=== PATIENT | male | born 1980 | race Caucasian/White ===

== ENCOUNTER 2021-12-07 10:13 | Emergency (ER) | payer SELFPAY ==
[2021-12-07 10:15] VITALS: BP 125/68; PULSE 92; RESP 16; TEMP 36.8; O2SAT 97; BMI 21.7
[2021-12-07 10:19] VITALS: BP 127/71; PULSE 78; RESP 16; TEMP 37.1; O2SAT 94
--- NOTE | 2021-12-07 10:51 | CT_ITS ---
STUDY: CT ABDOMEN AND PELVIS WITHOUT CONTRAST REASON FOR EXAM: Male, 41 years old. Left flank pain. Fever. RADIATION DOSAGE (If Supplied By Facility): CTDIvol = ( 6.13 ) mGy, DLP = ( 297.05 ) mGycm TECHNIQUE: Transaxial images were obtained from the dome of the diaphragm to the symphysis pubis without oral contrast, and without intravenous contrast. Sagittal and coronal images were reconstructed. Individualized dose optimization techniques were used for this CT. COMPARISON: None. FINDINGS: There is a 4.1 cm x 3.5 cm masslike lesion in the posterior medial segment of the left lower lobe. This may represent a focal area of consolidation. Radiographic follow-up is recommended. The visualized portions of the heart are within normal limits. Normal liver. Normal gallbladder and extrahepatic biliary system. Normal spleen. Normal pancreas. Normal bilateral adrenal glands. Normal right kidney. Normal left kidney. There is a small hiatal hernia. Normal small intestine. Normal colon. The appendix is visualized and appears normal. Normal abdominal aorta. Normal inferior vena cava. Normal retroperitoneum. Normal urinary bladder. Normal abdominal wall. Normal osseous structures. CT/Abdomen/Pelvis without Cont IMPRESSION: 4.1 cm x 3.5 cm masslike lesion in the posterior [place]dary of the left lower lobe. This may represent either an area of consolidation or pulmonary mass. Radiographic follow-up is recommended. Electronically Signed: Jose Dominguez MD at 12:05 EST ,
--- NOTE | 2021-12-07 10:55 | EDS_ITS ---
HPI History of Present Illness Chief Complaint: Fever Informant: patient Narrative Narrative: Patient presents with left flank pain and fever. Patient states he has been having the fever portion for almost 2 weeks. The highest temperature he has ever had is 100.4. Normally it is about 99.7. He is already had Covid testing. He had Covid testing just yesterday. While driving back from Covid testing, he got sudden onset of sharp left flank pain. He had not been having this at any other time. Nothing really makes it better or worse. PFSH PFSH Home Medications levofloxacin 750 mg PO DAILY #7 tab 12/07/21 [Rx Last Taken Unknown] Allergy/AdvReac Type Severity Reaction Status Date / Time venom-honey bee Allergy Swelling Verified 12/07/21 10:16 [bee venom (honey bee)] Social History Smoking Status: Current every day smoker tobacco type: cigarettes ROS ROS ED Constitutional Constitutional ED: Reports fever(s); Denies chills or sweats Eyes Eyes: Denies blurry vision ENT ENT ED: Reports rhinorrhea; Denies sore throat Cardiovascular Cardiovascular: Denies chest pain or palpitations Respiratory/Chest Respiratory/Chest: Denies cough, dyspnea or sputum Gastrointestinal Gastrointestinal: Denies abdominal pain, constipation, diarrhea, nausea or vomiting Genitourinary Genitourinary ED: Denies dysuria, hematuria or urinary frequency Musculoskeletal Musculoskeletal: Reports back pain; Denies myalgias Integumentary Denies Abrasions or rash Neurologic Neurologic: Denies headache(s), paresthesias or weakness Endocrine Endocrinology: Denies polydipsia or polyuria Allergic/Immunologic Allergic/Immunologic ED: Denies mouth swelling or urticaria EXAM Physical Exam Const Vital Signs: 12/07/21 10:15 12/07/21 10:19 12/07/21 10:25 Temperature 98.3 F 98.8 F Temperature Source Temporal Temporal Pulse Rate 92 78 Respiratory Rate 16 16 Respiratory Effort Normal Respiratory Pattern Normal Blood Pressure 125/68 H 127/71 H Blood Pressure Mean 87 89 Pulse Ox 97 94 Oxygen Delivery Method Room Air Room Air 12/07/21 13:21 Temperature 98.9 F Temperature Source Temporal Pulse Rate 73 Respiratory Rate 16 Respiratory Effort Respiratory Pattern Blood Pressure 115/68 Blood Pressure Mean 83 Pulse Ox 99 Oxygen Delivery Method Room Air Positive well nourished and well developed General Appearance ED: well developed and NAD; Negative for cyanotic or diaphoretic HEENT Reports moist mucous membranes Eyes General Eye ED: Negative for pale conjunctiva or scleral icterus Neck no JVD Chest Wall inspection of chest normal Resp normal respiratory effort and clear to auscultation bilaterally Effort and Inspection: Negative for pain with movement Auscultation: Negative for rales, rhonchi or wheezes Cardio regular rate and regular rhythm GI normal to inspection, nondistended, normoactive bowel sounds, non-tender, non- distended and no masses Auscultation: normoactive bowel sounds Palpation: soft; Negative for tender or guarding Back/Spine no CVA tenderness General Back: Negative for CVA tenderness Extremity normal to inspection Neuro oriented x3 Sensorium / Orientation: alert Psych mental status grossly normal Skin no rashes or lesions noted and no wounds MDM MDM MDM Narrative Medical decision making narrative: Blood work does show an elevated white count. Hemoglobin and platelets are normal. Electrolytes are unremarkable. Urine is clear. CT of his abdomen hinted of a left pulmonary mass possible. This patient is a smoker. I do not have a further explanation for his pain. We did do a CT aches I wanted to make sure that this was not a pulmonary embolus with infarct because his pain was relatively sudden onset. The CT of his chest does not show a pulmonary embolus. It does show changes that could be mass but are more likely infiltrative. We will treat him with antibiotics. I had a discussion with him and his significant other. I explained that one of the most important parts of today's visit is follow-up. Even if he is feeling perfectly resolved and better he needs to follow-up and have further imaging. We need to make sure that this area clears and if it does not clear he may need further CT or even biopsy. We also discussed the importance of smoking cessation. Lab Data Attestation: I reviewed the patient's lab results. Labs: Laboratory Results - last 24 hr 12/07/21 12/07/21 12/07/21 11:00 11:05 11:05 WBC 13.4 H RBC 4.43 L Hgb 14.1 Hct 39.0 L MCV 88.0 MCH 31.8 MCHC 36.2 H RDW Std Deviation 38.9 RDW Coeff of Donato 12.0 Plt Count 320 MPV 9.8 Immature Gran % (Auto) 0.400 Neut % (Auto) 76.9 H Lymph % (Auto) 13.6 L Leon % (Auto) 8.3 Eos % (Auto) 0.4 Baso % (Auto) 0.4 Absolute Neuts (auto) 10.3 H Absolute Lymphs (auto) 1.83 Nucleated RBC % 0 Sodium 136 Potassium 3.9 Chloride 102 Carbon Dioxide 26.0 Anion Gap 8 BUN 13 Creatinine 0.84 Estim Creat Clear Calc 124.99 Est GFR (MDRD) Af Amer 131 Est GFR (MDRD) Non-Af 108 BUN/Creatinine Ratio 15.5 Glucose 96 Calcium 9.0 Urine Color Yellow Urine Clarity Clear Urine pH 5.0 Ur Specific Mckinney 1.020 Urine Protein 15 H Urine Glucose (UA) Normal Urine Ketones 50 H Urine Occult Blood 10 H Urine Nitrite Negative Urine Bilirubin Negative Urine Urobilinogen 1 H Ur Leukocyte Esterase Negative Urine RBC 0-5 SEEN Urine WBC 0 SEEN Ur Squamous Epith Cells 0 SEEN Urine Bacteria 0 SEEN Urine Mucus 0 SEEN Radiography Diagnostic Testing: Clinical Impression(s) from Imaging Studies Abdomen/Pelvis CT 12/07/21 10:51 IMPRESSION: 4.1 cm x 3.5 cm masslike lesion in the posterior [place] of the left lower lobe. This may represent either an area of consolidation or pulmonary mass. Radiographic follow-up is recommended. Electronically Signed: Jose Dominguez MD at 12:05 EST , Chest CTA 12/07/21 12:31 IMPRESSION: No evidence of the pulmonary emboli. Infiltration versus mass lesion in the posterior medial segment of the left lower lobe as described. With the patient''s history of fever, this most likely represents an infiltration although radiographic follow-up is recommended. Electronically Signed: Jose Dominguez MD at 13:04 EST , Discharge Plan Triage Chief Complaint: Fever ED Provider: Arden Araiza Dx/Rx/DC Orders Clinical Impression: Left lower lobe pneumonia, Pulmonary mass Instructions: ED Pneumonia (Adult) Prescriptions: New levofloxacin 750 mg tablet 750 mg PO DAILY Qty: 7 RF: 0 Other Ambulatory Orders: Fast Pass: Oncology Referral [facility] (Routine) Facility: [facility] - Location: [facility] Ordered By: Dr. Arden Araiza Primary Care Provider: Care Physician,No Primary Referrals: David Mcneil MD [STAFF PHYSICIAN] - 1-2 Weeks Care Physician,No Primary [Primary Care Provider] - Disposition Disposition: Home, Self Care
[2021-12-07] MEDS: Ondansetron 4 MG/2 ML Vial IV (11:10)
[2021-12-07] MEDS: Morphine 4 MG/ML Syringe IV (11:11)
[2021-12-07 11:18] LABS: Absolute Lymphocyte Count 1.83 X10^3/uL (0.83-4.51); Absolute Neutrophil Count 10.3 X10^3/uL (2.0-7.7); Basophil# 0.05 X10^3/uL; Basophil% 0.4 % (0-1); Eosinophil# 0.05 X10^3/uL; Eosinophils% 0.4 % (0-5); Hemoglobin 14.1 g/dL (13.0-16.5); Lymphocyte # 1.83 X10^3/ul (0.83-4.51); Lymphocyte % 13.6 % (19-41); Mean Corp Hgb Conc 36.2 g/dL (32-36); Mean Corpuscular Hgb 31.8 pg (27.0-32.0); Mean Platelet Vol. 9.8 fl (6.2-12.0); Monocyte# 1.12 X10^3/uL; Monocyte% 8.3 % (0-10); NRBC Flagged by Analyzer 0 % (0-5); Neutrophil # 10.31 X10^3/uL (2.7-7.7); Neutrophil % 76.9 % (47-70); Platelet Count 320 K/mm3 (150-450); RBC Distribution Width SD 38.9 fl (35.1-43.9); Red Blood Count 4.43 M/mm3 (4.6-6.2); White Blood Count 13.4 K/mm3 (4.4-11.0)
[2021-12-07 11:32] LABS: Bacteria 0 SEEN /hpf (None Seen); Mucous, Urine 0 SEEN /hpf (<or=2+); Squamous Epithelial Cells - UA 0 SEEN /hpf (0-5); White Blood Cells 0 SEEN /hpf (0-5)
[2021-12-07 11:35] LABS: Anion Gap 8 (5-15); BUN 13 mg/dL (7-18); BUN/Creat Ratio 15.5 RATIO (10-20); Chloride 102 mmol/L (98-107); Creatinine, Serum 0.84 mg/dL (0.70-1.30); EST Glomerular Filtration Rate 108 mL/min (>60); Est Glom Filt Rate - Afr Amer 131 mL/min (>60); Estimated Creatinine Clearance 124.99 ml/min; Glucose 96 mg/dL (74-106); Potassium 3.9 mmol/L (3.5-5.1); Sodium Level 136 mmol/L (136-145)
[2021-12-07 11:35] LABS: Color, Urine Yellow (Yellow); Glucose, Dipstick Normal (Normal); Ketone-Dipstick 50 mg/dl (Negative); Leukocyte Esterase-Dipstick Negative /ul (Negative); Nitrite-Dipstick Negative (Negative); Occult Blood-Urine 10 /ul (Negative); Protein-Dipstick 15 mg/dl (Negative); Urine Bilirubin Dipstick Negative (Negative); Urine Clarity Clear (Clear); Urine Urobilinogen 1 mg/dl (Normal)
[2021-12-07 11:40] LABS: Red Blood Cells-Urine 0-5 SEEN /hpf (0-5)
--- NOTE | 2021-12-07 12:31 | CT_ITS ---
STUDY: CTA CHEST REASON FOR EXAM: Male, 41 years old. Left lower lobe mass versus PE versus pneumonia RADIATION DOSAGE (If Supplied By Facility): CTDIvol = ( 8.70 ) mGy, DLP = ( 300.32 ) mGycm TECHNIQUE: The examination was performed with the intravenous administration of IV 100mL Isovue-370. Post-processing of the angiographic images was performed, with multiplanar reformation and 3D reconstruction. Individualized dose optimization techniques were used for this CT. COMPARISON: None. FINDINGS: Normal enhancement of the main pulmonary artery and right and left pulmonary arteries. Normal enhancement of the bilateral peripheral pulmonary arteries. There is no demonstrated pulmonary embolism. Normal thoracic aorta and visualized great vessels. There is no demonstrated aortic dissection. Normal heart and pericardium. Normal mediastinum. Normal hilar regions. Normal visualized trachea and bronchi. The lungs are well expanded. Pulmonary infiltrate versus pulmonary mass in the posterior medial segment of the left lower lobe. With the patient''s history of fever, this may represent a pneumonic infiltrate. Radiographic follow-up is recommended. Normal pleura. Normal chest wall structures. Normal osseous structures. Normal visualized upper abdomen. CT/CTA Chest W/WO Contrast IMPRESSION: No evidence of the pulmonary emboli. Infiltration versus mass lesion in the posterior medial segment of the left lower lobe as described. With the patient''s history of fever, this most likely represents an infiltration although radiographic follow-up is recommended. Electronically Signed: Jose Dominguez MD at 13:04 EST ,
[2021-12-07 13:21] VITALS: BP 115/68; PULSE 73; RESP 16; TEMP 37.2; O2SAT 99
[2021-12-07] MEDS: levoFLOXacin 750 MG Tablet PO (13:30)
== END 2021-12-07 23:59 | disposition home or self-care (01) ==
PROVIDERS: Emergency Provider Emergency Medicine; Visit Provider Emergency Medicine
DX: J18.9 Pneumonia, unspecified organism (principal); R91.8 Other nonspecific abnormal finding of lung field; R10.9 Unspecified abdominal pain; F17.210 Nicotine dependence, cigarettes, uncomplicated
CPT/HCPCS: 71275; 74176; 80048; 81001; 85025; 96374; 96375; 99284; Q9967; A4216; J2405